=== PATIENT | male | born 1990 | race African-American/Black ===

== ENCOUNTER 2024-05-21 21:17 | Emergency (ER) | payer MEDICAID, OTHER ==
[~2024-05-21] VITALS: Ht 167.6 cm; Wt 65.0 kg
[2024-05-21 21:30] VITALS: O2SAT 98
[2024-05-22] MEDS: KETOROLAC 15MG/ML VIAL IM ONE (02:15)
[2024-05-22] MEDS ORDERED: FLUC200T51 MT (02:44)
[2024-05-22] MEDS: ONDANSETRON HCL 4MG TABLET PO ONE (03:00)
[2024-05-22 03:02] VITALS: BP 121/72; PULSE 98; RESP 20; TEMP 37.4; O2SAT 99
== END 2024-05-22 03:03 | disposition home or self-care (01) ==
LOC: ER 21:17
DX: B34.9 Viral infection, unspecified (principal); B37.0 Candidal stomatitis; F12.90 Cannabis use, unspecified, uncomplicated; Z90.49 Acquired absence of other specified parts of digestive tract
CPT/HCPCS: 99283; 96372; J1885; Q0162